=== PATIENT | male | born 1985 | race Hispanic/Latino ===

== ENCOUNTER 2017-03-23 20:36 | Emergency (ER) | payer SELFPAY ==
[2017-03-23 20:46] VITALS: BP 149/95
--- NOTE | 2017-03-23 20:55 | ERNOTE ---
Medical Problem HPI - Narrative Date of Service: 03/23/17 - General Chief Complaint: General Assessment Time Seen by Provider: 03/23/17 20:48 Source: patient - Immun/Allergies/Home Medications Immunizations: IMMUNIZATION HX Immunizations Up to Date Yes History of Influenza Vaccine No Hx Pneumococcal Vaccination No Allergies/Adverse Reactions: Allergies penicillin G Allergy (Severe, Verified 03/23/17 20:46) Hives - History of Present History Narrative: This is a 32-year-old male comes to the emergency department requesting a note saying he can go back to work. The patient works throwing boxes. Yesterday the patient called into work because he had been landed on by a sparring partner while doing martial arts. He says it hurt a bit when he was moving his arms yesterday so he didn't go to work. When he tried going to work today, they told him he had to have a work note saying that he return. No symptoms at present. Says he gets a little bit of discomfort on his chest when summary pushes on Review of Systems - Review of Systems Constitutional: Present: no symptoms reported EYE: Present: no symptoms reported ENT: Present: no symptoms reported Respiratory: Present: no symptoms reported Cardiology: Present: See HPI, chest pain Gastrointestinal/Abdominal: Present: no symptoms reported Genitourinary: Present: no symptoms reported Musculoskeletal: Present: no symptoms reported Skin: Present: no symptoms reported Neurological: Present: no symptoms reported Endocrine: Present: no symptoms reported Hematologic/Lymphatic: Present: no symptoms reported Psych: Present: no symptoms reported All Other Systems: All systems neg except as marked - Patient's Past Medical History Patient History - Medical: Other Patient History - Cardiac/Respiratory: No pertinent hx Patient History - Cancer: No Hx of Cancer Patient History - Surgical Procedures: No surgical history Patient History - Other: None - Family History Mother Family History - Medical: No pertinent hx Family History - Cardiac/Respiratory: No pertinent hx Father Family History - Medical: No pertinent hx, Other Family History - Cardiac/Respiratory: No pertinent hx - Social History Living Situations: significant other Abuse History: No History of abuse Psych History: Psychiatric Hx Smoking Status: Never smoker Have you smoked in the past 12 months: No Do you dip or chew tobacco: Yes Alcohol Use: occasionally Drug Use: none - Immunizations Immunizations Up to Date: Yes Hx Pneumococcal Vaccination: No History of Influenza Vaccine: No Physical Exam - Physical Exam General Appearance: Present: wd/wn, alert, no apparent distress Head Exam: Present: normal inspection, no evidence of injury Eye Exam: Normal inspection: bilateral, PERRL: bilateral, EOMI: bilateral Ears, Nose, Throat: Present: normal ENT inspection, normal pharynx Neck: Present: normal inspection, nontender Respiratory: Present: no respiratory distress, normal breath sounds, no accessory muscle use, chest nontender, lungs clear Cardiovascular/Chest: Present: regular rate, rhythm, no murmur, normal peripheral pulses, other - no tenderness to palpation. No difficulty with rotating the chest to the right of the left Gastrointestinal/Abdominal: Present: normal bowel sounds, nontender Male Genitals Exam: Present: normal genitalia, normal prostate Back Exam: Present: normal inspection, normal range of motion, no vertebral tenderness Extremity Exam: Present: normal inspection, non-tender, normal range of motion, no edema Neurological Exam: Present: oriented, normal mood/affect, no motor/sensory deficits Skin Exam: Present: normal color, warm/dry Lymphatic Exam: Present: no adenopathy ED Progress - Vital Signs Patient's Vital Signs:: I have reviewed the patient's vital signs. Vital Signs: Vital Signs 03/23/17 20:41 Temperature 36.8 C Pulse Rate 61 Respiratory 14 Rate Blood Pressure 149/95 O2 Sat by Pulse 96 Oximetry - Progress/Reassessment Chief Complaint: General Assessment Progress Note-Subjective: 03/23/17 20:53 The patient is really here just to get a note saying he can return back to work. He did not have a doctor place him off of work. I've explained to the patient that in the future the ER will really only be up to give him a return to work if we are the people who placed him off for work. I understand this causes difficulty with his job, but the ER simply cannot be the therapeutic strategy lead to determine if somebody is okay to work or not. He is okay with this Departure Clinical Impression: Well adult exam - Departure Disposition: Home self-care Condition: Good Additional Instructions: As we discussed, I see no medical reason why you cannot return to work. He may return immediately. No restrictions. Call your family doctor in supple follow-up appointment. If you do not have a family doctor he should call and establish one. Return to ER for new concerning symptoms
== END 2017-03-23 21:00 | disposition home or self-care (01) ==
LOC: ER 20:36
DX: Z00.00 Encounter for general adult medical examination without abnormal findings (principal)